=== PATIENT | male | born 1980 | race Caucasian/White ===

== ENCOUNTER 2017-08-02 13:45 | Outpatient (CLI) | payer MEDICAID | END 2017-08-02 23:59 | disposition home or self-care (01) | LOC: RAD 13:45 | PROVIDERS: ATTEND Family Medicine | DX: M54.5 Low back pain (principal); R68.84 Jaw pain; V29.9XXA Motorcycle rider (driver) (passenger) injured in unspecified traffic accident, initial encounter; Y93.89 Activity, other specified; Y92.89 Other specified places as the place of occurrence of the external cause; Y99.8 Other external cause status | CPT/HCPCS: 76881 ==

== ENCOUNTER 2017-10-08 16:40 | Emergency (ER) | payer MEDICAID ==
[~2017-10-08] VITALS: Ht 170.2 cm; Wt 78.0 kg
[2017-10-08 16:45] VITALS: BP 134/76
== END 2017-10-08 17:21 | disposition home or self-care (01) ==
LOC: ER 16:41
DX: S39.012A Strain of muscle, fascia and tendon of lower back, initial encounter (principal); G89.29 Other chronic pain; X50.1XXA Overexertion from prolonged static or awkward postures, initial encounter; Y93.89 Activity, other specified; Y92.89 Other specified places as the place of occurrence of the external cause; Y99.8 Other external cause status
CPT/HCPCS: 99281

== ENCOUNTER 2022-10-10 21:28 | Emergency (ER) | payer MEDICAID ==
[~2022-10-10] VITALS: Ht 175.3 cm; Wt 120.6 kg
[2022-10-10 21:30] VITALS: BP 162/106
[2022-10-10] MEDS ORDERED: ibuprofen tablet 400 MG TABLET PO ONE (22:40)
[2022-10-10] MEDS ORDERED: morphine 4 MG/ML inj SYRINge IM ONE (22:40)
[2022-10-10] MEDS ORDERED: TETanus/Pertussis (Acell)/Diphther VAC/PF (Tdap-Adult) 0.5ml syringe IMVAC ONE (22:45)
[2022-10-10] MEDS ORDERED: HYDR-3965 PO (23:51)
== END 2022-10-11 | disposition home or self-care (01) ==
LOC: ER 21:28
DX: S42.92XA Fracture of left shoulder girdle, part unspecified, initial encounter for closed fracture (principal); S01.511A Laceration without foreign body of lip, initial encounter; K21.9 Gastro-esophageal reflux disease without esophagitis; G89.29 Other chronic pain; J45.909 Unspecified asthma, uncomplicated; F12.90 Cannabis use, unspecified, uncomplicated; Z72.89 Other problems related to lifestyle; Z79.899 Other long term (current) drug therapy; W20.0XXA Struck by falling object in cave-in, initial encounter; Y93.89 Activity, other specified; Y92.89 Other specified places as the place of occurrence of the external cause; Y99.8 Other external cause status
CPT/HCPCS: 29105; 73030; 90471; 90715; 96372; 99284; J2270; A4565

== ENCOUNTER 2025-06-12 13:57 | Outpatient (CLI) | payer MEDICAID ==
[~2025-06-12] VITALS: Ht 175.9 cm; Wt 152.0 kg
[2025-06-12 14:35] VITALS: PULSE 75; RESP 18; O2SAT 95
[2025-06-12] MEDS: albuterol 2.5 MG/3 ML nebule NEB ONE (14:46)
[2025-06-12 14:47] VITALS: PULSE 73; RESP 16
== END 2025-06-12 23:59 | disposition home or self-care (01) ==
LOC: RT 13:57
DX: R06.02 Shortness of breath (principal)
CPT/HCPCS: 94060; 94760; J7030